=== PATIENT | female | born 1980 | race Caucasian/White ===

== ENCOUNTER 2021-12-08 08:21 | Emergency (ER) | payer SELFPAY ==
[2021-12-08] MEDS ORDERED: Ibuprofen 800 MG TAB ONE (08:51)
== END 2021-12-08 08:53 | disposition home or self-care (01) ==
LOC: BURERS 08:21
DX: N61.1 Abscess of the breast and nipple (principal); I10 Essential (primary) hypertension; F17.210 Nicotine dependence, cigarettes, uncomplicated
CPT/HCPCS: 99283